=== PATIENT | male | born 1955 | race Caucasian/White ===

== ENCOUNTER 2022-06-10 15:00 | Observation (INO) | payer MEDICARE ==
[~2022-06-10] VITALS: Ht 177.8 cm; Wt 109.6 kg
[2022-06-10 16:25] LABS: BASOPHILS % (AUTO) 0.8 % (0.0-5.0); EOSINOPHILS % (AUTO) 1.8 % (0.0-8.0); HEMATOCRIT 35.3 % (42-54); LYMPHOCYTES % (AUTO) 24.5 % (21.0-51.0); MEAN CORPUSCULAR HEMOGLOBIN 30.4 pg (27.0-33.0); MEAN CORPUSCULAR HGB CONC 32.9 g/dL (32.0-36.0); MEAN CORPUSCULAR VOLUME 92.4 fL (79-99); MONOCYTES % (AUTO) 9.9 % (3.0-13.0); NEUTROPHILS % (AUTO) 62.8 % (40.0-77.0); PLATELET COUNT (AUTO) 208 K/uL (130-400); RED BLOOD CELL COUNT(AUTO) 3.82 MIL/uL (4.50-6.20); RED CELL DISTRIBUTION WIDTH 13.5 % (11.0-15.5); WHITE BLOOD COUNT (AUTO) 4.9 K/uL (4.8-10.8)
[2022-06-10 16:31] LABS: POTASSIUM 4.1 mmol/L (3.5-5.1)
[2022-06-10 16:34] LABS: INR 0.97 (0.85-1.15); PROTHROMBIN TIME 10.6 SEC (9.6-11.6)
[2022-06-10 16:35] LABS: PARTIAL THROMBOPLASTIN TIME 26.7 SEC (26.3-35.5)
[2022-06-10 17:39] VITALS: BP 123/73
[2022-06-10] MEDS ORDERED: ATOR40TA71 PO (17:45)
[2022-06-10] MEDS ORDERED: ISOS60TA77 PO (17:45)
[2022-06-10] MEDS ORDERED: AEC81 PO (17:45)
[2022-06-10] MEDS ORDERED: MELO-108 PO (17:45)
[2022-06-10] MEDS ORDERED: LAMO50TA3 PO (17:45)
[2022-06-10] MEDS ORDERED: AMLO-258 PO (17:45)
[2022-06-10] MEDS ORDERED: OMEP40CA21 PO (17:45)
[2022-06-10] MEDS ORDERED: MIRT7.5T11 PO (17:45)
[2022-06-13] VITALS (25 sets, daily range): BP systolic 130–179; BP diastolic 69–96
[2022-06-13 07:52] LABS: APPEARANCE,URINE CLEAR (CLEAR); BILIRUBIN,URINE NEGATIVE (NEGATIVE); COLOR,URINE LIGHT-YELLOW (YELLOW); GLUCOSE, URINE (UA) NEGATIVE (NEGATIVE); KETONES,URINE NEGATIVE (NEGATIVE); LEUKOCYTE ESTERASE ,URINE NEGATIVE (NEGATIVE); NITRATE,URINE NEGATIVE (NEGATIVE); OCCULT BLOOD,URINE NEGATIVE (NEGATIVE); PROTEIN,URINE NEGATIVE (NEGATIVE); UROBILINOGEN,URINE 0.2 mg/dL (0.2-1.0)
[2022-06-13] MEDS ORDERED: CEFAZOLIN SODIUM 1 GM VIAL ONE (07:52)
[2022-06-13] MEDS ORDERED: LACTATED RINGERS 1000ML 1,000 ML IV ONE (07:52)
[2022-06-13] MEDS ORDERED: ROCURONIUM 10MG/1ML SYR 10 MG/ML ML ONE ×2 (13:27→14:02)
[2022-06-13] MEDS ORDERED: SUCCINYLCHOLINE CHLORIDE 20 MG/ML 10 ML VIAL ONE (13:27)
[2022-06-13] MEDS ORDERED: PROPOFOL 10 MG/ML 20ML VIAL IV ONE (13:27)
[2022-06-13] MEDS ORDERED: FENTANYL CITRATE PF 50 MCG/1 ML 2ML VIAL ONE (13:28)
[2022-06-13] MEDS ORDERED: CEFAZOLIN SODIUM 3 GM VIAL IV ONE (13:30)
[2022-06-13] MEDS ORDERED: NEOSTIGMINE 5MG/5ML SYR IV ONE (15:04)
[2022-06-13] MEDS ORDERED: GLYCOPYRROLATE 1 MG/5 ML SYRINGE ONE (15:04)
[2022-06-13] MEDS ORDERED: ROPIVACAINE 0.5% 5MG/ML 30ML IJ ONE (15:08)
[2022-06-13] MEDS ORDERED: DEXAMETHASONE SOD PHOSPHATE 10MG/ML 1ML VIAL ONE (15:10)
[2022-06-13] MEDS ORDERED: MEPERIDINE-PF 25 MG/ML SYG ONE ×2 (15:43→15:57)
[2022-06-13] MEDS ORDERED: ONDANSETRON 4MG INJ IVP PRN (16:00)
[2022-06-13] MEDS ORDERED: KCL 20 MEQ ERTAB PO PRN (16:00)
[2022-06-13] MEDS ORDERED: HYDROCODONE/ACETAMINOPHEN 5/325 MG TAB PO PRN (16:00)
[2022-06-13] MEDS ORDERED: LIDOCAINE HCL-MPF 1% 2ML VIAL IV PRN (16:00)
[2022-06-13] MEDS ORDERED: POTASSIUM CHLORIDE 20MEQ/100ML 100 ML IV PRN (16:00)
[2022-06-13] MEDS ORDERED: POTASSIUM CHLORIDE 10% ELIXIR 20 MEQ/15 ML UDCUP PO PRN (16:00)
[2022-06-13] MEDS: MORPHINE 4 MG SYG IVP PRN ×2 (19:05→20:57)
[2022-06-13] MEDS: 0.9%NACL 1000ML 1,000 ML IV SCH (19:06)
[2022-06-13] MEDS: ACETAMINOPHEN 500 MG TABLET PO SCH (19:06)
[2022-06-13] MEDS: CEFAZOLIN SODIUM 1 GM VIAL IVP SCH (20:50)
[2022-06-13] MEDS: FAMOTIDINE 20MG TAB PO SCH (20:50)
[2022-06-14] MEDS: ACETAMINOPHEN 500 MG TABLET PO SCH ×4 (00:24→23:54)
[2022-06-14] MEDS: 0.9%NACL 1000ML 1,000 ML IV SCH ×2 (02:00→10:26)
[2022-06-14] MEDS: CEFAZOLIN SODIUM 1 GM VIAL IVP SCH (04:28)
[2022-06-14 04:34] VITALS: BP 120/66
[2022-06-14 04:41] LABS: HEMATOCRIT 32.5 % (42-54); MEAN CORPUSCULAR HEMOGLOBIN 30.1 pg (27.0-33.0); MEAN CORPUSCULAR HGB CONC 32.6 g/dL (32.0-36.0); MEAN CORPUSCULAR VOLUME 92.3 fL (79-99); RED BLOOD CELL COUNT(AUTO) 3.52 MIL/uL (4.50-6.20); RED CELL DISTRIBUTION WIDTH 13.2 % (11.0-15.5); WHITE BLOOD COUNT (AUTO) 9.3 K/uL (4.8-10.8)
[2022-06-14 04:49] LABS: POTASSIUM 4.3 mmol/L (3.5-5.1)
[2022-06-14 07:30] VITALS: BP 126/83
[2022-06-14] MEDS: FAMOTIDINE 20MG TAB PO SCH ×2 (09:00→21:35)
[2022-06-14] MEDS: POLYETHYLENE GLYCOL 3350 17 GM POWD.PACK PO SCH (09:04)
[2022-06-14 11:00] VITALS: BP 133/73
[2022-06-14] MEDS: MORPHINE 4 MG SYG IVP PRN (12:41)
[2022-06-14 16:00] VITALS: BP 120/60
[2022-06-14 20:55] VITALS: BP 133/75
[2022-06-14] MEDS: MIRTAZAPINE 15 MG TABLET PO SCH (21:35)
[2022-06-14] MEDS: ATORVASTATIN 40 MG TABLET PO SCH (21:35)
[2022-06-14] MEDS: LAMOTRIGINE 25 MG TAB PO SCH (21:35)
[2022-06-15 00:08] VITALS: BP 120/66
[2022-06-15] MEDS: MORPHINE 4 MG SYG IVP PRN ×2 (01:02→22:49)
[2022-06-15 04:47] VITALS: BP 121/69
[2022-06-15] MEDS: PANTOPRAZOLE 40 MG TAB DR PO SCH (06:53)
[2022-06-15] MEDS: HYDROCODONE/ACETAMINOPHEN 10/325 MG TAB PO PRN ×2 (06:58→20:18)
[2022-06-15 07:30] VITALS: BP 122/68
[2022-06-15] MEDS: MELOXICAM 7.5 MG TABLET PO SCH (09:00)
[2022-06-15] MEDS: POLYETHYLENE GLYCOL 3350 17 GM POWD.PACK PO SCH (09:37)
[2022-06-15] MEDS: ACETAMINOPHEN 500 MG TABLET PO SCH ×3 (09:38→23:47)
[2022-06-15] MEDS: FAMOTIDINE 20MG TAB PO SCH ×2 (09:38→20:17)
[2022-06-15] MEDS: ISOSORBIDE MONO 60MG SR TAB PO SCH (09:38)
[2022-06-15] MEDS: AMLODIPINE 5 MG TAB PO SCH (09:38)
[2022-06-15] MEDS: ASPIRIN 81 MG EC TAB PO SCH (09:38)
[2022-06-15 11:00] VITALS: BP 135/69
[2022-06-15 16:00] VITALS: BP 129/69
[2022-06-15] MEDS: LAMOTRIGINE 25 MG TAB PO SCH (20:17)
[2022-06-15] MEDS: MIRTAZAPINE 15 MG TABLET PO SCH (20:17)
[2022-06-15] MEDS: ATORVASTATIN 40 MG TABLET PO SCH (20:17)
[2022-06-15 20:39] VITALS: BP 130/74
[2022-06-16 00:21] VITALS: BP 129/72
[2022-06-16 03:45] VITALS: BP 130/69
[2022-06-16] MEDS: PANTOPRAZOLE 40 MG TAB DR PO SCH (06:18)
[2022-06-16 07:30] VITALS: BP 135/72
[2022-06-16] MEDS: ACETAMINOPHEN 500 MG TABLET PO SCH ×2 (08:00→16:00)
[2022-06-16] MEDS: HYDROCODONE/ACETAMINOPHEN 10/325 MG TAB PO PRN ×2 (08:20→18:04)
[2022-06-16] MEDS: POLYETHYLENE GLYCOL 3350 17 GM POWD.PACK PO SCH (10:03)
[2022-06-16] MEDS: ASPIRIN 81 MG EC TAB PO SCH (10:03)
[2022-06-16] MEDS: ISOSORBIDE MONO 60MG SR TAB PO SCH (10:03)
[2022-06-16] MEDS: AMLODIPINE 5 MG TAB PO SCH (10:03)
[2022-06-16] MEDS: FAMOTIDINE 20MG TAB PO SCH (10:03)
[2022-06-16 11:00] VITALS: BP 139/76
[2022-06-16] MEDS: MELOXICAM 7.5 MG TABLET PO SCH (12:08)
[2022-06-16] MEDS ORDERED: BISACODYL 10 MG SUPP.RECT RC PRN (16:00)
== END 2022-06-16 18:15 ==
LOC: EDSTATUS 15:00 → DAHIP 06-13 07:14 → 4DH 06-13 17:23
PROVIDERS: ADMIT Orthopaedic Surgery Sports Medicine; ATTEND Orthopaedic Surgery Sports Medicine
DX: M17.11 Unilateral primary osteoarthritis, right knee (principal); Z20.822 Contact with and (suspected) exposure to COVID-19; I10 Essential (primary) hypertension; E78.5 Hyperlipidemia, unspecified; Z79.82 Long term (current) use of aspirin; Z79.899 Other long term (current) drug therapy; Z98.890 Other specified postprocedural states
CPT/HCPCS: 80048 ×2; 85025; 85610; 85730; 87426; 27447; 96374; 96375; 76942; 64447; 81003; 36415 ×2; 73560; 97039 ×7; 96376 ×2; 85027; 97161; 97116 ×4; 97530 ×5; G0378 ×71; J7030; C1776; A4600; J0690 ×4; J7120; J3010; J3490; J1100; J2710; J0330; J2704; J2270 ×5; J2175 ×2; J2795; A6223; A4649 ×2; A4930 ×2; A5120; A4215; A4223; A4222; A4221; A4663

== ENCOUNTER → 2023-09-11 | Outpatient (CLI) | payer MEDICARE ==
[~2023-09-11] MED LIST: AMLO-258 PO; ATOR40TA71 PO; ISOS60TA77 PO; LAMO50TA3 PO; MELO-108 PO; MIRT7.5T11 PO; OMEP40CA21 PO
== END | disposition home or self-care (01) ==
LOC: RAH 09:49
PROVIDERS: ATTEND Family Medicine
DX: I70.201 Unspecified atherosclerosis of native arteries of extremities, right leg (principal); R22.41 Localized swelling, mass and lump, right lower limb
CPT/HCPCS: 93926; 93971

== ENCOUNTER 2023-10-13 05:51 | Day surgery (SDC) | payer MEDICARE ==
[2023-10-11 10:14] VITALS: BP 140/82; PULSE 74; RESP 18
[2023-10-11 10:21] LABS: BASOPHILS # (AUTO) 0.03 K/uL (0.00-0.20); BASOPHILS % (AUTO) 0.7 % (0.0-5.0); EOSINOPHILS # (AUTO) 0.09 K/uL (0.00-0.70); EOSINOPHILS % (AUTO) 2.2 % (0.0-8.0); HEMATOCRIT 37.2 % (42-54); IMMATURE GRANULOCYTE ABSOLUTE 0.01 K/uL (0-1); MEAN CORPUSCULAR HEMOGLOBIN 30.2 pg (27.0-33.0); MEAN CORPUSCULAR HGB CONC 31.5 g/dL (32.0-36.0); MEAN CORPUSCULAR VOLUME 96.1 fL (79-99); MONOCYTES # (AUTO) 0.3 K/uL (0.1-1.0); MONOCYTES % (AUTO) 7.7 % (3.0-13.0); NEUTROPHILS # (AUTO) 2.7 K/uL (1.8-7.7); NEUTROPHILS % (AUTO) 65.2 % (40.0-77.0); PLATELET COUNT (AUTO) 187 K/uL (130-400); RED BLOOD CELL COUNT(AUTO) 3.87 MIL/uL (4.50-6.20); RED CELL DISTRIBUTION WIDTH 12.7 % (11.0-15.5); WHITE BLOOD COUNT (AUTO) 4.2 K/uL (4.8-10.8)
[2023-10-11 10:31] LABS: CREATININE 0.9 mg/dL (0.5-1.5); POTASSIUM 4.4 mmol/L (3.5-5.1)
[2023-10-11 10:49] LABS: INR < 0.93 (0.85-1.15); PROTHROMBIN TIME 10.8 SEC (9.6-11.6)
[2023-10-11 10:50] LABS: PARTIAL THROMBOPLASTIN TIME 29.1 SEC (26.3-35.5)
[2023-10-11 10:55] LABS: B-TYPE NATRIURETIC PEPTIDE 130 pg/mL (0-100)
[~2023-10-13] VITALS: Ht 177.8 cm; Wt 111.3 kg
[2023-10-13] VITALS (7 sets, daily range): BP systolic 113–143; BP diastolic 64–86; PULSE 66–74; RESP 15–16
[~2023-10-13 05:51] MED LIST changes: -AMLO-258 PO; +ASPI-1005 PO; +CARV3.12 PO; +LAMO100T16 PO; -LAMO50TA3 PO; -MELO-108 PO; -MIRT7.5T11 PO; +SACU1TAB PO; +TAMS-1 PO
[2023-10-13] MEDS ORDERED: 0.9%NACL 1000ML 1,000 ML IV ONE (06:16)
[2023-10-13] MEDS ORDERED: HEPARIN 10,000 UNIT/10ML (1,000 UNIT/ML) VIAL ONE (07:12)
[2023-10-13] MEDS ORDERED: IOHEXOL 350 MG/ML 100ML INFUS..BTL IV ONE (07:12)
[2023-10-13] MEDS ORDERED: LIDOCAINE HCL 400MG/20ML VIAL ONE (07:12)
[2023-10-13] MEDS ORDERED: NITROGLYCERIN 50MG VIAL ONE (07:12)
[2023-10-13] MEDS ORDERED: VERAPAMIL HCL 2.5 MG/ML VIAL ONE (07:33)
[2023-10-13] MEDS ORDERED: FENTANYL CITRATE PF 50 MCG/1 ML 2ML VIAL ONE (07:52)
[2023-10-13] MEDS ORDERED: MIDAZOLAM HCL 1 MG/ML 2ML VIAL ONE (07:53)
[2023-10-13] MEDS ORDERED: IOHEXOL-350 50ML VIAL IV ONE (08:31)
[2023-10-13] MEDS ORDERED: 0.9%NACL 1000ML 1,000 ML IV SCH (09:00)
== END 2023-10-13 11:15 | disposition home or self-care (01) ==
LOC: DAH 05:51
PROVIDERS: ATTEND Internal Medicine Interventional Cardiology
DX: I25.10 Atherosclerotic heart disease of native coronary artery without angina pectoris (principal); I11.0 Hypertensive heart disease with heart failure; I50.22 Chronic systolic (congestive) heart failure; G60.8 Other hereditary and idiopathic neuropathies; R06.09 Other forms of dyspnea; I35.0 Nonrheumatic aortic (valve) stenosis; R09.89 Other specified symptoms and signs involving the circulatory and respiratory systems; Z98.61 Coronary angioplasty status; Z79.01 Long term (current) use of anticoagulants; Z79.82 Long term (current) use of aspirin; Z79.899 Other long term (current) drug therapy
CPT/HCPCS: 80048; 83880; 85025; 85610; 85730; 36415; 71045; 93005; 93458; C1769; C1894; J3010; J3490 ×3; J7030; J1644 ×2; J2250; Q9967 ×2; A4215; A4222; A4221; A4663; A4216; A4606; Q9965; A4223 ×3; 96360; 96361; 99156; 99157